=== PATIENT | male | born 1940 | race Caucasian/White ===

== ENCOUNTER 2022-07-18 02:32 | Emergency (ER) | payer MEDICARE, BC ==
[2022-07-18] MEDS ORDERED: Ketorolac 30 MG/ML SDV IM ONE (03:00)
== END 2022-07-18 03:58 | disposition home or self-care (01) ==
LOC: MW.ED 02:32
DX: M19.032 Primary osteoarthritis, left wrist (principal); Z79.899 Other long term (current) drug therapy; Z79.4 Long term (current) use of insulin
CPT/HCPCS: 29125; 36415; 73110; 84550; 85025; 96372; 99283; J1885